=== PATIENT | male | born 1945 | race Caucasian/White ===

== ENCOUNTER 2017-02-22 09:39 | Emergency (ER) | payer MEDICARE ==
[2017-02-22] MEDS ORDERED: ONDANSETRON 4 MG/2 ML VIAL IVP STA (10:11)
--- NOTE | 2017-02-22 10:15 | ED ---
General Adult HPI - General Chief complaint: Dizziness Stated complaint: BLOOD PRESSURE HIGH Time Seen by Provider: 02/22/17 09:45 Source: patient, RN notes reviewed Mode of arrival: wheelchair Limitations: no limitations - History of Present Illness Initial comments: This is a 71-year-old male who presents emergency Department with the only complaint of nausea and vomited once last evening. Patient states this occurred ever since he was sedated for an MRI on . Patient denies any headache patient denies any lightheadedness. Patient denies any numbness weakness. Patient denies chest pain palpitations difficulty breathing or shortness of breath per patient denies any fever chills. Patient denies any diarrhea. When asked the patient wasn't dizzy even though he told nursing he was dizzy he denied dizziness to me. I asked the patient he wanted anything for his nausea he said he did not. Patient thought he might be nauseous this morning because he didn't eat breakfast. Patient states that his blood pressure with a friend's cough and it was elevated at home so he decided come to the emergency department - Related Data Home Medications Medication Instructions Recorded Confirmed No Known Home Medications [No 04/23/16 02/22/17 Known Home Medications] Allergies Allergy/AdvReac Type Severity Reaction Status Date / Time No Known Allergies Allergy Verified 02/22/17 11:33 Review of Systems ROS Statement: Those systems with pertinent positive or pertinent negative responses have been documented in the HPI. ROS Other: All systems not noted in ROS Statement are negative. Past Medical History Past Medical History: No Reported History Additional Past Medical History / Comment(s): neck pain History of Any Multi-Drug Resistant Organisms: None Reported Past Surgical History: Appendectomy, Back Surgery, Tonsillectomy Additional Past Surgical History / Comment(s): COLONOSCOPY Past Anesthesia/Blood Transfusion Reactions: No Reported Reaction Past Psychological History: No Psychological Hx Reported Smoking Status: Heavy tobacco smoker Past Alcohol Use History: Occasional Past Drug Use History: None Reported - Past Family History Mother Family Medical History: Cancer General Exam - General Exam Comments Initial Comments: GENERAL: Patient is well-developed and well-nourished. Patient is nontoxic and well- hydrated and is in no acute distress. ENT: Neck is soft and supple. No significant lymphadenopathy is noted. Oropharynx is clear. Moist mucous membranes. Neck has full range of motion without eliciting any pain. EYES: The sclera were anicteric and conjunctiva were pink and moist. Extraocular movements were intact and pupils were equal round and reactive to light. Eyelids were unremarkable. PULMONARY: Unlabored respirations. Good breath sounds bilaterally. No audible rales rhonchi or wheezing was noted. CARDIOVASCULAR: There is a regular rate and rhythm without any murmurs gallops or rubs. ABDOMEN: Soft and nontender with normal bowel sounds. No palpable organomegaly was noted. There is no palpable pulsatile mass. SKIN: Skin is clear with no lesions or rashes and otherwise unremarkable. NEUROLOGIC: Patient is alert and oriented x3. Cranial nerves II through XII are grossly intact. Motor and sensory are also intact. Normal speech, volume and content. Symmetrical smile. MUSCULOSKELETAL: Normal extremities with adequate strength and full range of motion. No lower extremity swelling or edema. No calf tenderness. LYMPHATICS: No significant lymphadenopathy is noted PSYCHIATRIC: Normal psychiatric evaluation. Limitations: no limitations Course Vital Signs 02/22/17 02/22/17 02/22/17 09:41 10:07 10:28 Temperature 97.0 F L Pulse Rate 64 56 L 55 L Respiratory 18 16 16 Rate Blood Pressure 181/95 156/95 163/88 O2 Sat by Pulse 98 100 98 Oximetry 02/22/17 02/22/17 10:54 12:18 Temperature 97.8 F Pulse Rate 54 L 58 L Respiratory 14 16 Rate Blood Pressure 140/92 141/89 O2 Sat by Pulse 99 100 Oximetry Medical Decision Making - Medical Decision Making EKG shows normal sinus rhythm at 60 bpm OK interval is 168 QRSs 100 QT interval 442 QTC is 442. Patient's EKG shows no ST segment elevation or depression or T wave abnormalities are noted Patient states he has no nausea at this time and feels like he can go home. - Lab Data Result diagrams: 02/22/17 09:50 02/22/17 09:50 Lab Results 02/22/17 02/22/17 02/22/17 Range/Units 09:50 09:50 09:50 WBC 8.0 (3.8-10.6) k/uL RBC 4.86 (4.30-5.90) m/uL Hgb 15.8 (13.0-17.5) gm/dL Hct 46.7 (39.0-53.0) % MCV 96.1 (80.0-100.0) fL MCH 32.5 (25.0-35.0) pg MCHC 33.8 (31.0-37.0) g/dL RDW 13.7 (11.5-15.5) % Plt Count 189 (150-450) k/uL Neutrophils % 63 % Lymphocytes % 27 % Monocytes % 5 % Eosinophils % 2 % Basophils % 1 % Neutrophils # 5.0 (1.3-7.7) k/uL Lymphocytes # 2.2 (1.0-4.8) k/uL Monocytes # 0.4 (0-1.0) k/uL Eosinophils # 0.2 (0-0.7) k/uL Basophils # 0.1 (0-0.2) k/uL Sodium 139 (137-145) mmol/L Potassium 4.4 (3.5-5.1) mmol/L Chloride 104 (98-107) mmol/L Carbon Dioxide 26 (22-30) mmol/L Anion Gap 9 mmol/L BUN 12 (9-20) mg/dL Creatinine 0.95 (0.66-1.25) mg/dL Est GFR (MDRD) Af Amer >60 (>60 ml/min/1.73 sqM) Est GFR (MDRD) Non-Af >60 (>60 ml/min/1.73 sqM) Glucose 98 (74-99) mg/dL Calcium 9.3 (8.4-10.2) mg/dL Magnesium 2.2 (1.6-2.3) mg/dL Total Bilirubin 0.6 (0.2-1.3) mg/dL AST 19 (17-59) U/L ALT 30 (21-72) U/L Alkaline Phosphatase 71 (38-126) U/L Total Creatine Kinase 57 (55-170) U/L CK-MB (CK-2) 0.5 (0.0-2.4) ng/mL CK-MB (CK-2) Rel Index 0.9 Troponin I <0.012 (0.000-0.034) ng/mL Total Protein 7.5 (6.3-8.2) g/dL Albumin 4.1 (3.5-5.0) g/dL Disposition Clinical Impression: Nausea & vomiting, Hypertension Disposition: HOME SELF-CARE Condition: Good Instructions: Acute Nausea and Vomiting (ED), Hypertension (ED) Referrals: Barb Acosta MD [Primary Care Provider] - 1-2 days Time of Disposition: 12:33
[2017-02-22 10:39] LABS: Basophils # (A) 0.1 k/uL (0-0.2); Basophils % (A) 1 %; CH 32.1; CHCM 33.6; Eosinophils # (A) 0.2 k/uL (0-0.7); Eosinophils % (A) 2 %; HCT 46.7 % (39.0-53.0); HDW 2.72; HGB 15.8 gm/dL (13.0-17.5); Luc # (Auto) 0.18; Luc % (Auto) 2; Lymphocytes # (A) 2.2 k/uL (1.0-4.8); Lymphocytes % (A) 27 %; MCH 32.5 pg (25.0-35.0); MCHC 33.8 g/dL (31.0-37.0); MCV 96.1 fL (80.0-100.0); Mean Platelet Volume 7.3; Monocytes # (A) 0.4 k/uL (0-1.0); Monocytes % (A) 5 %; Neutrophils % (A) 63 %; RBC 4.86 m/uL (4.30-5.90); RDW 13.7 % (11.5-15.5); WBC (Perox) 7.97
[2017-02-22 11:03] LABS: ALT 30 U/L (21-72); AST 19 U/L (17-59); Alkaline Phosphatase 71 U/L (38-126); Anion Gap 9 mmol/L; Blood Urea Nitrogen 12 mg/dL (9-20); Calcium 9.3 mg/dL (8.4-10.2); Carbon Dioxide 26 mmol/L (22-30); Chloride 104 mmol/L (98-107); Glucose 98 mg/dL (74-99); Magnesium 2.2 mg/dL (1.6-2.3); Non-African American GFR(MDRD) >60 (>60 ml/min/1.73 sqM); Potassium 4.4 mmol/L (3.5-5.1); Sodium 139 mmol/L (137-145); Total Bilirubin 0.6 mg/dL (0.2-1.3); Total Protein 7.5 g/dL (6.3-8.2)
[2017-02-22 11:52] LABS: Creatine Kinase 57 U/L (55-170)
[2017-02-22 12:04] LABS: Creatine Kinase MB 0.5 ng/mL (0.0-2.4); Troponin I <0.012 ng/mL (0.000-0.034)
[2017-02-22 12:22] VITALS: BP 141/89; PULSE 58; RESP 16; TEMP 97.8
[2017-02-22] MEDS ORDERED: ONDANSETRON 4 MG ODT STARTER PACK 2 TAB BTL PO STA (12:33)
== END 2017-02-22 12:46 | disposition home or self-care (01) ==
LOC: EC 09:39
DX: I10 Essential (primary) hypertension (principal); R11.2 Nausea with vomiting, unspecified; R42 Dizziness and giddiness; F17.290 Nicotine dependence, other tobacco product, uncomplicated
CPT/HCPCS: 36415; 93005; 80053; 82550; 82553; 83735; 84484; 85025; 99284; 96374; J2405; S0119

== ENCOUNTER → 2020-01-04 | Outpatient (CLI) | payer MEDICARE ==
--- NOTE | 2020-01-04 14:11 | CTL ---
EXAMINATION TYPE: CT Low Dose Lung DATE OF EXAM ORDERED: 01/04/2020 HISTORY: Long-term tobacco use. Lung cancer screening CT DLP: [address] CTDI: 3.7 mGy Automated exposure control for dose reduction was used. SCREENING VISIT: Initial study COMPARISON: Chest x-ray April 02, 2012 TECHNIQUE: Low dose computed tomography scan was performed through the chest at 1 mm thick sections a nd reconstructed images in the coronal plane at [address] DIAGNOSTIC QUALITY: Satisfactory FINDINGS: LUNG NODULES: None. LUNGS: COPD: Severity: [id number] Fibrosis: Severity: Mild/moderate anterior reticulation and fibrosis bilateral upper lobes and mild l inear scarring in both bases. Lymph nodes: No greater than 1 cm Other findings: None BILATERAL PLEURAL SPACE: Effusion: None Calcification: None Thickening: None Pneumothorax: None HEART: Heart Size: Normal Coronary calcification: Moderate three-vessel Pericardial effusion: Trace OTHER FINDINGS: Upper abdomen: Nonspecific 1.6 cm hypodense lesion left hepatic lobe axial image 327 favored benign Bony thorax: Moderate multilevel spurring with slight scoliotic curvature. Supraclavicular region: None. Other: Small degree of bilateral subareolar gynecomastia. IMPRESSION: No suspicious nodules. FOLLOW UP CT CHEST RECOMMENDATION: Annual low-dose lung screening CT CT LUNG RAD: Lung-Rad 1 Negative
== END | disposition home or self-care (01) ==
LOC: RADCTMAIN 13:18
PROVIDERS: ATTEND Family Medicine
DX: Z12.2 Encounter for screening for malignant neoplasm of respiratory organs (principal); F17.210 Nicotine dependence, cigarettes, uncomplicated

== ENCOUNTER → 2020-01-19 | Outpatient (CLI) | payer MEDICARE ==
--- NOTE | 2020-01-19 14:08 | EST ---
EXERCISE STRESS AGE: 74 SEX: M HT: 72" WT: 238 lbs PROTOCOL: Juan STAGE: 2 DURATION OF EXERCISE: 4:19 HEART RATE REST: 63 BLOOD PRESSURE REST: 149/76 MAXIMUM HEART RATE ACHIEVED: 107 MAXIMUM BLOOD PRESSURE: 174/93 85% MPHR: 125 100% MPHR: 147 METS: 6.0 INDICATIONS: Heart disease CLINICAL INFORMATION: Baseline rhythm is a sinus mechanism, rate of 63, normal axis and intervals, minor nonspecific ST-T wave changes, baseline blood pressure 149/86 mmHg. Patient exercised on Juan protocol for 4 minutes, 19 seconds reaching peak rate of 107 beats per minute which is equal 73% maximum predicted heart rate. Peak blood pressure 174/93 mmHg. Test was terminated due to fatigue. There was no chest pain. Electrocardiograph monitoring revealed occasional PVCs. There was no evidence of diagnostic ischemic ST deviation. IMPRESSION: 1. Decreased exercise tolerance with occasional PVCs. 2. Nondiagnostic electrocardiograph stress testing secondary to the inability to achieve 85% maximum predicted heart rate. MMODL / IJN: [id number] /
== END | disposition home or self-care (01) ==
LOC: RADNMMAIN 08:31
PROVIDERS: ATTEND Family Medicine
DX: R94.39 Abnormal result of other cardiovascular function study (principal); I51.9 Heart disease, unspecified
CPT/HCPCS: 93017

== ENCOUNTER → 2021-04-25 | Outpatient (CLI) | payer MEDICARE ==
--- NOTE | 2021-04-25 08:34 | CT ---
EXAMINATION TYPE: CT iac wo con DATE OF EXAM: 04/25/2021 COMPARISON: None HISTORY: Mastoiditis CT DLP: 235mGycm Automated exposure control for dose reduction was used. FINDINGS: There is wall thickening of the right external auditory canal. Left external auditory canal is of normal appearance. Suspect wax debris within the right external auditory canal. There is thick ening of the right tympanic membrane. The left tympanic membrane has a normal appearance. Mastoid air cells show no evidence of abnormal opacification bilaterally. The middle ear ossicles are symmetric and unremarkable. There is no evidence of suspicious surrounding soft tissue density to suggest cho lesteatoma. The scutum is preserved bilaterally. The cochlea and the semicircular canals are symmet alfredo and unremarkable. Vestibular aqueduct and internal carotid canal appear unremarkable. Temporoma ndibular joints are maintained bilaterally. IMPRESSION: 1. There is thickening of the right tympanic membrane and the right external auditory canal with wax debris noted. There is no evidence for mastoiditis at this time.
== END | disposition home or self-care (01) ==
LOC: RADCTMAIN 07:57
PROVIDERS: ATTEND Otolaryngology
DX: H91.90 Unspecified hearing loss, unspecified ear (principal); H70.92 Unspecified mastoiditis, left ear
CPT/HCPCS: 70480

== ENCOUNTER 2021-08-01 07:12 | Day surgery (SDC) | payer MEDICARE ==
[2021-07-31 10:24] VITALS: BMI 31.8
[2021-08-01] MEDS ORDERED: LACTATED RINGERS 1,000 ML IV ONE ×2 (07:26)
[2021-08-01 07:42] VITALS: TEMP 96.8
[2021-08-01] MEDS ORDERED: LIDOCAINE 1% (10MG/ML) FOR IV START INTRADERMA PRN (07:50)
[2021-08-01] MEDS ORDERED: LACTATED RINGERS 1,000 ML IV SCH (07:50)
[2021-08-01] MEDS ORDERED: PROPOFOL 10 MG/ML 20 ML VIAL IV ONE (08:06)
[2021-08-01] MEDS ORDERED: LIDOCAINE 1% INJ 10MG/ML (20 ML MDV) ONE (08:06)
--- NOTE | 2021-08-01 08:12 | P.GSHP ---
History of Present Illness H&P Date: 08/01/21 CHIEF COMPLAINT: Colon screen HISTORY OF PRESENT ILLNESS: The patient is a 75-year-old male who presents for colon screen. Lower endoscopy was offered for further evaluation and management. PAST MEDICAL HISTORY: Please see list. PAST SURGICAL HISTORY: Please see list. MEDICATIONS: Please see list. ALLERGIES: Please see list. SOCIAL HISTORY: No illicit drug use FAMILY HISTORY: No reports of Crohn disease or ulcerative colitis. REVIEW OF ORGAN SYSTEMS: CONSTITUTIONAL: No reports of fevers or chills. PHYSICAL EXAM: VITAL SIGNS: Stable GENERAL: Well-developed pleasant in no acute distress. HEENT: No scleral icterus. Extraocular movements grossly intact. Moist buccal mucosa. NECK: Supple without lymphadenopathy. CHEST: Unlabored respirations. Equal bilateral excursions. CARDIOVASCULAR: Regular rate and rhythm. Distal 2+ pulses. ABDOMEN: Soft, nontender, nondistended. MUSCULOSKELETAL: No clubbing, cyanosis, or edema. ASSESSMENT: 1. Colon screen. PLAN: 1. Recommend proceeding with a lower endoscopy Past Medical History Past Medical History: No Reported History Additional Past Medical History / Comment(s): neck pain History of Any Multi-Drug Resistant Organisms: None Reported Past Surgical History: Appendectomy, Back Surgery, Hernia Repair, Tonsillectomy Additional Past Surgical History / Comment(s): COLONOSCOPY Past Anesthesia/Blood Transfusion Reactions: No Reported Reaction Smoking Status: Current every day smoker - Past Family History Mother Family Medical History: Cancer Medications and Allergies Home Medications Medication Instructions Recorded Confirmed Type No Known Home Medications 04/23/16 07/31/21 History Allergies Allergy/AdvReac Type Severity Reaction Status Date / Time No Known Allergies Allergy Verified 08/01/21 07:33 Surgical - Exam Vital Signs Temp Pulse Resp BP Pulse Ox 96.8 F L 75 18 140/79 100 08/01/21 07:36 08/01/21 07:36 08/01/21 07:36 08/01/21 07:36 08/01/21 07:36
--- NOTE | 2021-08-01 08:41 | P.PCN ---
Date of Procedure: 08/01/21 Description of Procedure: PREOPERATIVE DIAGNOSIS: Personal history of colon polyps Family history malignant colon polyps POSTOPERATIVE DIAGNOSIS: Tubular adenoma sigmoid colon 10 diverticulosis Sigmoid diverticulosis Internal hemorrhoids, grade 2 OPERATION: Colonoscopy to the ileocecal valve and appendiceal orifice, cecum Colonoscopy with hot snare polypectomy SURGEON: Latia Koenig MD. ANESTHESIA: MAC. INDICATIONS: The patient is an 75-year-old male who presents family history of malignant colon polyps and personal history of colon polyps. Last colonoscopy over 5 years. Benefits and risks were described and informed consent was obtained. DESCRIPTION OF PROCEDURE: The patient had undergone Sutab prep. The patient had been brought into the operating room and laid in the left lateral decubitus position. After adequate intravenous sedation, the rectum was examined with 2% lidocaine jelly. The prostate was unremarkable. No external hemorrhoids were encountered. The rectal tone was within normal limits. No lesions were palpated in the rectal vault. An Olympus colonoscope was advanced until the cecum, ileocecal valve and appendiceal orifice were clearly viewed. The prep was fair. Sigmoid diverticulosis was encountered including martin diverticulosis Colonic polyps were found and removed. No evidence of focal colitis was found. Retroflexion of the scope demonstrated grade 1 internal hemorrhoids without active bleeding or inflammation. The colon was desufflated. The patient had tolerated the procedure well. Withdrawal time was over 6 minutes. FINDINGS: Aronchick preparation quality scale 3 (1-5) Internal hemorrhoids, grade 1 No external hemorrhoids No arteriovenous malformations. Sigmoid diverticulosis Pandiverticulosis Removal of 2 polyps: - Snare polypectomy 15 cm from the anal verge, 5 mm tubulovillous adenoma polyp, sigmoid colon - Snare polypectomy 30 cm from the anal verge, 4 mm flat villous adenoma polyp, sigmoid colon No focal colitis. RECOMMENDATIONS: Repeat colonoscopy in 3 years, 2024 Plan - Discharge Summary Discharge Rx Participant: No New Discharge Prescriptions: No Action No Known Home Medications Discharge Medication List No Known Home Medications 04/23/16 [History] Follow up Appointment(s)/Referral(s): Latia Koenig MD [STAFF PHYSICIAN] - 08/21/21 Patient Instructions/Handouts: Colorectal Polyps (GEN), Diverticulosis Diet (GEN), Diverticulitis Diet (DC), Diverticulosis (DC) Activity/Diet/Wound Care/Special Instructions: Repeat colonoscopy in 3 years, 2024 Discharge Disposition: HOME SELF-CARE
[2021-08-01 08:55] VITALS: RESP 16
[2021-08-01 08:56] VITALS: BP 110/70; PULSE 62
== END 2021-08-01 09:28 | disposition home or self-care (01) ==
LOC: ORWHC2ENDO 07:12
PROVIDERS: ATTEND Surgery Plastic and Reconstructive Surgery
DX: Z12.11 Encounter for screening for malignant neoplasm of colon (principal); K63.5 Polyp of colon; Z86.010 Personal history of colon polyps; Z80.0 Family history of malignant neoplasm of digestive organs; K57.30 Diverticulosis of large intestine without perforation or abscess without bleeding; K64.1 Second degree hemorrhoids; M54.2 Cervicalgia; Z90.49 Acquired absence of other specified parts of digestive tract; F17.210 Nicotine dependence, cigarettes, uncomplicated; K21.9 Gastro-esophageal reflux disease without esophagitis
CPT/HCPCS: 88305; 45385; J2001; J2704

== ENCOUNTER → 2022-04-12 | Outpatient (CLI) | payer MEDICARE ==
--- NOTE | 2022-04-12 10:49 | XR ---
EXAMINATION TYPE: XR chest 2V DATE OF EXAM: 04/12/2022 COMPARISON: 04/02/2012 HISTORY: Shortness of breath TECHNIQUE: Frontal and lateral views of the chest are obtained. FINDINGS: Scattered senescent parenchymal changes noted. Hyperinflation compatible with COPD. No evidence for infiltrate. No evidence for atelectasis. Heart size is stable. Mediastinal structures are stable and grossly unremarkable. No evidence for hilar prominence. Degenerative changes dorsal spine. IMPRESSION: 1. No evidence for acute pulmonary disease.
== END | disposition home or self-care (01) ==
LOC: RADXRMAIN 10:31
PROVIDERS: ATTEND Nurse Practitioner Family
DX: R05.2 Subacute cough (principal); R06.2 Wheezing
CPT/HCPCS: 71046

== ENCOUNTER → 2023-03-12 | Outpatient (CLI) | payer MEDICARE ==
[2023-03-12 15:15] LABS: African American GFR (CKD) >90 (>60 ml/min/1.73 sqM); Blood Urea Nitrogen 15 mg/dL (9-20); Non-African American GFR(CKD) 86 (>60 ml/min/1.73 sqM)
--- NOTE | 2023-03-13 21:36 | CT ---
EXAMINATION TYPE: CT angio head neck DATE OF EXAM: 03/12/2023 HISTORY: cluster headache syndrome, neck pain COMPARISON: None CT DLP: 544.9 mGycm. Automated Exposure Control for Dose Reduction was Utilized. TECHNIQUE: CTA scan of the neck is performed with IV Contrast, patient injected with 65 mL of Isovue 370, axial images are obtained, coronal and sagittal reformatted images are reviewed. Three-D recons tructed images are created on an independent workstation and reviewed. Source images are reviewed. FINDINGS: Carotid/Vascular Structures: There is a common origin of the right subclavian and left common carotid artery. Atheromatous plaquing without significant flow limiting stenosis at the bilateral carotid b ifurcations. Common carotid arteries bifurcate into internal and external carotid arteries without significant joana w limiting stenosis. Vertebral arteries are codominant. Internal carotid arteries and vertebral arteries are patent to the skull base. Cervical of [place]: Vertebral basilar system appears normal. Posterior cerebral vasculature is unrema rkable. Internal carotid arteries bifurcate normally into A1 and M1 segments. A2 segments are normal. The anterior communicating artery is patent. The right posterior communicating artery is absent. The left posterior communicating artery is patent. IMPRESSION: 1. No flow-limiting stenosis bilateral carotid bifurcations. 2. Normal [place] of [place] NASCET criteria was used in interpretation of this exam?
== END | disposition home or self-care (01) ==
LOC: RADCTMAIN 14:04
PROVIDERS: ATTEND Orthopaedic Surgery
DX: G44.009 Cluster headache syndrome, unspecified, not intractable (principal)
CPT/HCPCS: 82565; 84520; 70496; 70498; 36415; Q9967

== ENCOUNTER → 2023-06-27 | Outpatient (CLI) | payer MEDICARE ==
--- NOTE | 2023-06-27 12:30 | CT ---
EXAMINATION TYPE: CT cervical spine wo con DATE OF EXAM: 06/27/2023 COMPARISON: None HISTORY: 77-year-old male M50.30 OTHER CERVICAL DISC DEGENERATION Other cervical disc degeneration TECHNIQUE: Contiguous axial scanning of the cervical spine without IV contrast. Coronal and sagittal reconstructions performed. CT DLP: 813 mGycm Automated exposure control for dose reduction was used. FINDINGS: Craniocervical junction abnormality, predental space widening, or prevertebral soft tissue swelling. Mild degenerative change C1 dens articulation. Patient status post C5-C6 ACDF. Bkiz-mg-dafaorut degenerative disc disease with narrowing and disc osteophyte complex formation throu ghout the remaining levels. Disc osteophyte complex is resulting in mild spinal canal stenoses such as a C3-C4, C4-C5. There is r esidual posterior osteophytic ridging at the fused level as well C5-C6 mildly narrowing the spinal ca nal. Borderline moderate spinal canal narrowing C3-C4. Multilevel hypertrophic facet and uncovertebral joint arthropathy is present. Alignment is maintained. At C3-C4, changes result in moderate to severe right neural foraminal stenosis and mild on the left. At C4-C5, changes result in mild right neural foraminal stenosis. At C5-C6, changes result in mild right neuroforaminal stenosis. At C6-C7, mild bilateral neural foraminal stenosis. At C7-T1, mild left neuroforaminal stenosis. IMPRESSION: 1. STATUS POST C5-C6 ACDF. THERE IS RESIDUAL POSTERIOR OSTEOPHYTIC RIDGING AT THIS FUSED LEVEL CONTRI BUTING TO MILD SPINAL CANAL STENOSIS. 2. ADDITIONAL MULTILEVEL SPONDYLOTIC CHANGE WITH LEVELS OF MILD SPINAL CANAL NARROWING THROUGHOUT SEC ONDARY TO DISC OSTEOPHYTE COMPLEXES. BORDERLINE MODERATE NARROWING OF THE SPINAL CANAL AT C3-C4. 3. HYPERTROPHIC FACET AND UNCOVERTEBRAL JOINT ARTHROPATHY. THERE IS VARIABLE MILD NEUROFORAMINAL STEN OSES OUTLINED ABOVE, MODERATE TO SEVERE ON THE RIGHT AT C3-C4.
== END | disposition home or self-care (01) ==
LOC: RADCTMAIN 11:35
PROVIDERS: ATTEND Orthopaedic Surgery
DX: M47.812 Spondylosis without myelopathy or radiculopathy, cervical region (principal); M50.30 Other cervical disc degeneration, unspecified cervical region; M99.71 Connective tissue and disc stenosis of intervertebral foramina of cervical region; M25.78 Osteophyte, vertebrae; Z98.1 Arthrodesis status
CPT/HCPCS: 72125

== ENCOUNTER → 2023-09-04 | Outpatient (CLI) | payer MEDICARE ==
[2023-09-04 15:31] LABS: HCT 43.4 % (39.6-50.0); HGB 14.5 g/dL (13.0-17.0); MCH 31.9 pg (27.0-32.0); MCHC 33.4 g/dL (32.0-37.0); MCV 95.4 FL (80.0-97.0); Mean Platelet Volume 10.5 FL (9.5-12.2); NRBC Per 100 WBC 0 X 10*3/uL (0.00-0.01); Platelet Count 189 X 10*3/uL (140-440); RBC 4.55 X 10*6/uL (4.40-5.60); RDW 13.8 % (11.5-14.5); WBC 7.01 X 10*3/uL (4.50-10.00)
[2023-09-04 15:58] LABS: INR 1.07 sec (0.93-1.11); Prothrombin Time 11.5 sec (9.9-11.9)
[2023-09-04 16:08] LABS: ALT 22 U/L (10-49); AST 23 U/L (14-35); Albumin 4.3 g/dL (3.8-4.9); Albumin/Globulin Ratio 1.59 Ratio (1.60-3.17); Alkaline Phosphatase 75 U/L (41-126); Blood Urea Nitrogen 13.2 mg/dL (9.0-27.0); Calcium 9.2 mg/dL (8.7-10.3); Carbon Dioxide 22.9 mmol/L (21.6-31.8); Chloride 105 mmol/L (96-109); Globulin 2.7 g/dL (1.6-3.3); Glucose 106 mg/dL (70-110); Potassium 4.2 mmol/L (3.5-5.5); Sodium 137 mmol/L (135-145); Total Bilirubin 0.6 mg/dL (0.3-1.2)
== END | disposition home or self-care (01) ==
LOC: LABWHC1 09:24
PROVIDERS: ATTEND Orthopaedic Surgery
DX: M50.20 Other cervical disc displacement, unspecified cervical region (principal); M54.12 Radiculopathy, cervical region; R94.31 Abnormal electrocardiogram [ECG] [EKG]
CPT/HCPCS: 36415; 80053; 82306; 85027; 85610; 93005

== ENCOUNTER → 2023-09-18 | Outpatient (CLI) | payer MEDICARE | END | disposition home or self-care (01) | LOC: LABPAT 10:04 | PROVIDERS: ATTEND Orthopaedic Surgery | DX: Z01.812 Encounter for preprocedural laboratory examination (principal); Z22.322 Carrier or suspected carrier of Methicillin resistant Staphylococcus aureus; M50.20 Other cervical disc displacement, unspecified cervical region; M54.12 Radiculopathy, cervical region | CPT/HCPCS: 36415; 86850; 86900; 86901; 87070 ==

== ENCOUNTER 2023-09-25 09:28 | Day surgery (SDC) | payer MEDICARE ==
--- NOTE | 2023-09-18 20:01 | P.HPOR ---
History of Present Illness H&P Date: 09/18/23 .D:Date: 09/18/23 : 09:36am .T:Title: *CHANDANA SILVA [facility] HISTORY AND PHYSICAL Age: 78 year Height: 6' Weight: 244 lbs BMI: 33.09 kg/m2 Occupation: Instructor Of Nursing VAS: 5 Spine Surgery Risk Review Mr. Almaguer is presenting for evaluation of neck and bilateral upper extremity pain, bilateral upper extremity numbness and tingling. It was my pleasure to have seen and examined Mr. Almaguer. In our visit today we have had a chance to go over subjective complaints, physic al examination findings and treatments including the natural course history without intervention and various interventional options. The patients imaging demonstrates: CT scancompleted at Outside facility from02/28/23 of Cervical Spine: - Re-reviewed with the patient today. -Spondylosis with stenosis severe, C3-4, C4-5 -HNP C3-4 causing moderate to severe stenosis -HNP C4-5 causing moderate to severe stenosis -Alignment stable, decreased CL -NO fracture -No lesions CT scancompleted at [facility] from03/12/23 of angiogram, head, and neck: - Re-reviewed with the patient today. See report. No blockages. XRay Cervical multiview (Lateral, Flexion, Extension, AP, Oblique) 6 views taken at [facility] on 01/22/23: - Re-reviewed with the patient today. Multilevel spondylitic and degenerative changes with preserved alignment. Hardware present at C5-C6 from previous surgical procedure, screws and plate are intact with no migration. Multilevel diminished disc height. Adjacent segment disease is noted at C4-C5 and C6-C7. Mild grade 1 retrolisthesis C2 onto C3. Bilateral foraminal stenosis at the level of C3-C4. No acute osseous abnormalities. On physical exam, Mr. Almaguer demonstrates: A continued ache-like, burning pain that radiates down into the bilateral upper extremities with a sharp, shooting quality. The patient states that his upper extremity pain is associated with numbness and tingling bilaterally. The patient states his symptoms are exacerbated by prolonged activity or with any quick movements of the neck. The patient reports experiencing severe sleep disturbances related to her ongoing pain and associated symptoms. I have explained to the patient that as their condition progresses it will cause further neurological deficits and eventual paralysis. Based on the patients imaging, physical exam, and the rapid progression and disabling nature of their symptoms, at this time I recommend surgery in the form of a: C3-5 ACDF. I discussed the risk and benefits of this procedure at length with Mr. Almaguer. The patient agreed to considered pursuing the procedure abovementioned. Prior to surgery, she should follow up with her PCP (Cardio, ID, IM etc) for clearance. Questions were invited and answered, and the patient wishes to proceed as outlined below. Currently, I am recommendin.C3-5 Anterior cervical discecomty and fusion 2.Review of surgical risks and benefits as well as an educational packet on the proposed surgical procedure. Risks: All surgical procedures come with inherent risks, including those related to positioning, anesthesia, intraoperative findings, and postoperative complications. It is important to understand that surgery does not come with any guarantee of a successful outcome as complications and adverse events are always possible. The patient was given a handout in office today discussing the surgical procedure and risks associated with the intervention, both of which were discussed with the patient. These risks include but are not limited to the following: * Experiencing same, different or even worse symptoms in back, neck, arms, or legs compared to before surgery. Requiring further surgery or other forms of treatment presently or at some time in the future at same or other levels of the intended spine surgery. On an extreme but fortunately relatively rare basis severe complication such as blindness, stroke, heart attack, temporary and/or permanent nerve injury, paralysis, coma, or may occur, sometimes without known explanation. Surgical complications may include but are not limited to risk of infection, fluid accumulation in the surgical dissection site, including a seroma or hematoma, that requires additional surgery, wound drainage, bleeding, new numbness or weakness, vision changes/loss, spinal fluid leakage, non-healing and/or infected incision, headaches, difficulty or inability to swallow, hoarseness, hemopneumothorax, pneumothorax, impotence, retrograde ejaculation, vaginal dryness; injury to nerves, spinal cord, blood vessels, lymphatics or other vital organs (i.e., bowel injury, injury to the great vessels); heterotopic bone formation; complications related to the hardware such as screws, rods, cages including misplaced hardware, device failure, instrumentation at the wrong spine level, hardware fracture/breakage, or hardware loosening; vertebral failure of the spinal column above or below the newly placed hardware; retained surgical instrumentations or devices and the need for further surgery. * Medical risks of the planned spine surgery include but are not limited to generalized Infections to the whole body or local areas outside of the surgical site (sepsis), heart attack, bleeding, anaphylaxis, meningitis, seizure, epilepsy, hearing loss, burn heck, laceration of the head or other areas of the body, bruising, hypersensitivity of the skin, bladder over distension; allergic reaction; shoulder injury related to positioning; fat, blood and air clots to other areas of the body like heart, lungs, brain; failure of internal organs such as lungs, kidneys, liver and excessive bleeding. If blood transfusions are necessary, note that transfusions may cause intolerance reactions such as anaphylaxis or other complex reactions. Despite best efforts, the results of spine surgery might not heal in terms of bone, soft tissues such as skin, fascia, ligaments, and joints. Additionally, in order to achieve best possible results, spine surgery may be carried out beyond the initially planned levels and involve decompression, fusion including insertion of hardware at levels other than the original intended area of surgical interest change some portions of the procedure in order to ensure the best possible outcomes. With spine surgery and spinal fusion, there are different off label uses of instrumentation (devices, implants and hardware) as well as biological substances (bone morphogenic proteins, demineralized bone matrix) as well as using extra bone from allograft sources (i.e. cadaver bone) or autograft (iliac crest bone, ribs, or the spine itself). The patient has been given information about these practices and their inherent risks and benefits. [facility] is an educational center that serves as a training facility for neurosurgical and orthopedic COMPOUND WORKER and Nursing students. Physician assistants are medically trained surgical providers who function in the outpatient, inpatient, and operating room setting under the direct supervision of the attending surgeon. [facility] has multiple operating rooms with single and overlapping rooms running daily. They currently function under the required guidelines as produced by the [facility] with regards to the overlapping rooms and will continue to comply with changes to this policy as they occur. The requirements include and are complied with as follows: (1) the critical portions of the overlapping rooms will not occur at the same time, (2) the attending physician will be physically present during the critical portions of the procedure and immediately available during the entire case, and (3) a back-up attending is designated should the primary attending not be immediately available. The patient has had a chance to review all the listed information, has been given print outs detailing this information, and has had all his/her questions answered to their satisfaction. It was my pleasure to have seen and examined Mr. Almaguer. In our visit today we have had a chance to go over my understanding of our patient's current condition, the natural course history without intervention and various interventional options. Questions were invited and answered, and the patient wishes to proceed as outlined above. I have seen and examined the patient for 25 minutes and we have spent more than 50% of the time in repeat and detailed counseling about the patient's condition, its natural course history with out and as much as can be predicted with surgery and re-review of various surgical treatment options. In conclusion, Mr. Almaguer requested we proceed with the above suggested surgery and are willing to accept risks and limitations of the suggested surgery as nature of the disease process and our best attempts at treatment for the condition. Thank you again for allowing us to be part of your patient's care. Please don't hesitate to contact me if you have any further questions. FOLLOW UP: Post Procedure PATIENT EDUCATION: Medications Reviewed: YES In our visit today Mr. Almaguer and I have had a chance to go over my understanding of the patient's current condition, the natural course history without intervention and various interventional options. Questions were invited and answered, and the patient wishes to proceed as outlined above. I will be sure to keep you updated after Mr. Almaguer returns here for further follow-up. Thank you again for your referral. Please do not hesitate to contact me if you have any further questions. Signed and authenticated by: Arnol Nunez [facility] [address] [address] This message is confidential, intended only for the named recipient(s) and may contain information that is privileged or exempt from disclosure under applicable law. If you are not the intended recipient(s), you are notified that the dissemination, distribution or copying of this information is strictly prohibited. If you received this message in error, please notify the sender then delete this message. Past Medical History Past Medical History: No Reported History Additional Past Medical History / Comment(s): neck pain History of Any Multi-Drug Resistant Organisms: None Reported Past Surgical History: Appendectomy, Back Surgery, Hernia Repair, Tonsillectomy Additional Past Surgical History / Comment(s): COLONOSCOPY Past Anesthesia/Blood Transfusion Reactions: No Reported Reaction Smoking Status: Current every day smoker - Past Family History Mother Family Medical History: Cancer Medications and Allergies Home Medications Medication Instructions Recorded Confirmed Type No Known Home Medications 04/23/16 07/31/21 History Allergies Allergy/AdvReac Type Severity Reaction Status Date / Time No Known Allergies Allergy Verified 08/01/21 07:33 Physical Examination Osteopathic Statement: *. No significant issues noted on an osteopathic structural exam other than those noted in the History and Physical/Consult.
[2023-09-23 11:50] VITALS: BMI 33.9
[~2023-09-25 09:28] MED LIST: MIDAZOLAM 2 MG/2 ML VIAL IV PRN; TRANEXAMIC 1,000 MG/100ML-NACL 1,000 MG in SALINE 1 100ML.BAG IVPB PRN
[2023-09-25] MEDS: LACTATED RINGERS 1,000 ML IV SCH (10:15)
[2023-09-25] MEDS: ACETAMINOPHEN TAB 500 MG TAB PO PRN (10:19)
[2023-09-25] MEDS: GABAPENTIN 300 MG CAP PO PRN (10:19)
[2023-09-25] MEDS: DEXAMETHASONE SOD PHOSPHATE 4 MG/ML 1 ML VIAL IVP ONE (10:25)
[2023-09-25] MEDS: ONDANSETRON 4 MG/2 ML VIAL IVP PRN (10:25)
[2023-09-25] MEDS ORDERED: GLYCOPYRROLATE 0.2 MG/ML 2 ML VIAL ONE (11:00)
[2023-09-25] MEDS ORDERED: TRANEXAMIC 1,000 MG/100ML-NACL PREMIX BAG ONE (11:00)
[2023-09-25] MEDS ORDERED: ePHEDrine 50 MG/ML 1 ML VIAL ONE (11:00)
[2023-09-25] MEDS ORDERED: ROCURONIUM 10 MG/ML (5 ML VIAL) IV ONE (11:00)
[2023-09-25] MEDS ORDERED: NEOSTIGMINE 1 MG/ML 10 ML VIAL ONE (11:00)
[2023-09-25] MEDS ORDERED: fentaNYL (PF) 50 MCG/ML 2 ML AMP ONE (11:00)
[2023-09-25] MEDS ORDERED: SUCCINYLCHOLINE CHLORIDE 200 MG/10 ML VIAL IV ONE (11:00)
[2023-09-25] MEDS ORDERED: PROPOFOL 10 MG/ML 20 ML VIAL IV ONE (11:00)
[2023-09-25] MEDS ORDERED: LIDOCAINE 1% INJ 10MG/ML (20 ML MDV) ONE (11:00)
[2023-09-25] MEDS ORDERED: KETAMINE HCL IN 0.9 % NACL 50 MG/5 ML SYRINGE ONE (11:00)
[2023-09-25] MEDS ORDERED: MIDAZOLAM 2 MG/2 ML VIAL ONE (11:00)
[2023-09-25] MEDS: GELATIN SPONGE,ABSORB (LARGE) 1 EACH SPONGE MISCELLANE ONE (12:18)
[2023-09-25] MEDS: THROMBIN (BOVINE) 5,000 UNIT VIAL TOPICAL ONE (12:18)
--- NOTE | 2023-09-25 13:59 | P.OP ---
Date of Procedure: 09/25/23 Preoperative Diagnosis: 1. 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 UE RADICULOPATHY 3. UE WEAKNESS 4. NECK PAIN Postoperative Diagnosis: 1. 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 UE RADICULOPATHY 3. UE WEAKNESS 4. NECK PAIN Procedure(s) Performed: 1. C3-4 ANTERIOR CERVICAL INTERBODY ARTHRODESIS 2. C4-5 ANTERIOR CERVICAL INTERBODY ARTHRODESIS 3. C3-5 ANTERIOR INSTRUMENTATION 4. C3-4 AND C4-5 INSERTION OF BIOMECHANICAL DEVICE x2 USE OF IONM USE OF IO MICROSCOPE Implants: -4 ESTRADA ANTERIOR INTERBODY DEVICE 9MM 7 DEG MED -16MM SCREW INTERFACE -AUTOGRAFT -MAGNATOS Anesthesia: GETA Surgeon: Arnol Vieira Wolf Hunter #1: Ashley Whelan (Ashley Whelan, OR RN Was present and assisted with all aspects of the case from positioning to dressing placement) Estimated Blood Loss (ml): 50 IV fluids (ml): 1,200 Urine output (ml): 250 Pathology: none sent Condition: stable Disposition: PACU Indications for Procedure: Mr. Almaguer is presenting for evaluation of neck and bilateral upper extremity pain, bilateral upper extremity numbness and tingling. It was my pleasure to have seen and examined Mr. Almaguer. In our visit today we have had a chance to go over subjective complaints, physical examination findings and treatments including the natural course history without intervention and various interventional options. The patients imaging demonstrates: CT scancompleted at Outside facility from02/28/23 of Cervical Spine: - Re-reviewed with the patient today. -Spondylosis with stenosis severe, C3-4, C4-5 -HNP C3-4 causing moderate to severe stenosis -HNP C4-5 causing moderate to severe stenosis -Alignment stable, decreased CL -NO fracture -No lesions CT scancompleted at [facility] from03/12/23 of angiogram, head, and neck: - Re-reviewed with the patient today. See report. No blockages. XRay Cervical multiview (Lateral, Flexion, Extension, AP, Oblique) 6 views taken at [facility] on 01/22/23: - Re-reviewed with the patient today. Multilevel spondylitic and degenerative changes with preserved alignment. Hardware present at C5-C6 from previous surgical procedure, screws and plate are intact with no migration. Multilevel diminished disc height. Adjacent segment disease is noted at C4-C5 and C6-C7. Mild grade 1 retrolisthesis C2 onto C3. Bilateral foraminal stenosis at the level of C3-C4. No acute osseous abnormalities. On physical exam, Mr. Almaguer demonstrates: A continued ache-like, burning pain that radiates down into the bilateral upper extremities with a sharp, shooting quality. The patient states that his upper extremity pain is associated with numbness and tingling bilaterally. The patient states his symptoms are exacerbated by prolonged activity or with any quick movements of the neck. The patient reports experiencing severe sleep disturbances related to her ongoing pain and associated symptoms. I have explained to the patient that as their condition progresses it will cause further neurological deficits and eventual paralysis. Based on the patients imaging, physical exam, and the rapid progression and disabling nature of their symptoms, at this time I recommend surgery in the form of a: C3-5 ACDF. I dis cussed the risk and benefits of this procedure at length with Mr. Almaguer. The patient agreed to considered pursuing the procedure abovementioned. Prior to surgery, she should follow up with her PCP (Cardio, ID, IM etc) for clearance. Questions were invited and answered, and the patient wishes to proceed as outlined below. Currently, I am recommendin.C3-5 Anterior cervical discecomty and fusion Description of Procedure: C3-5 ACDF (REVISION) The patient was seen and examined in the preoperative area. All preoperative protocols were followed. Informed consent was obtained, risks and benefits of the procedure were discussed at length. Risks including bleeding infection damage to the surrounding tissue and risk of reoperation were discussed with the patient. Risk of anesthesia up to and including was discussed with the patient. These are outlined in the risk review. They were willing to accept these risks and all the risks of surgery. The patient was given a weight-based dose of antibiotics in the form of 2 g Ancef. The patient was seen and evaluated by the anesthesia team who deemed them fit for surgery. The site was marked, the patient was willing to proceed with the procedure. The patient was transferred to the operative suite by the Department of anesthe chau. They were then drifted off to sleep by the department anesthesia and GETA was performed. The patient tolerated this well. Vines catheter was placed by nursing staff, a-traumatically. Once confirmation of lines and ventilation the patient was transferred to a Supine Real table very carefully. All bony prominences including wrists, elbows, axilla, chest, hips, and thighs, and feet were padded very well. Special attention was paid to the genitalia, and these were padded accordingly. SCDs were placed on bilateral lower extremities and were connected. Arms were well padded and placed at their side thumbs up. Once in position, again we confirmed good ventilation capabilities and that lines were running appropriately. The patients Cervical spine was then exposed. 1010s were placed outlining the incision site. Standard alcohol was used to clean the incision site and allowed to dry. C-arm was used to bio-donaldo the patient and confirm level for incision which was marked with a skin marker. Operative briefing was performed with all teams and everyone in agreement to proceed. The patient was then prepped and draped in a normal sterile fashion. Timeout was then performed, and all parties agreed with the procedure to be performed. Transverse skin incision was then made on the LEFT side of the patients neck 3 cm through his previous incision, and dissection taken down to the platysma which was split transversely. Sub platysma flap was made, and interval identified between SCM and medial structures. Omohyoid was visualized and protected. Blunt dissection taken down to the anterior cervical facia which was identified. Blunt prob was then placed and lateral image taken which confirmed levels for operation. Plate was visualized at the caudal level and was stable. FUsion at this level was stable as well. These levels were then marked with a bovi. Subperiosteal dissection of the longissimus muscles were then done over these levels identifying uncovertebral joints bilaterally. Retractor was then placed deep to these muscles and held in place with a bed arm. [place] pins were placed into C3 and C4 and gentle distraction taken out over the levels. Иван rongeur used to remove disc material. Operating microscope brought in for visualization. Complete discectomy performed at this level with curette, rongure and pituitary. High speed vineet used to remove osteophytes anteriorly and posteriorly until PLL was identified. 6-0 up curette then used to identify the canal and resect the PLL. 2-0 and 3-0 Kerrison used then to remove PLL and disc herniation and performed b/l foraminotomies. Once good decompression was accomplished, meticulous hemostasis was performed. Sizers were then placed under lateral fluoroscopy until the desired height and lo rdosis. Cage was then selected, packed with autograft and allograft and placed under lateral imaging. Once in good position it was tested and stable. Motors run before and after cage placement were stable. The wound was irrigated, and autograft placed lateral to the cage anteriorly for fusion. [place] pin was then removed from C3 and bone wax placed in its void. [place] pin was then replaced i nto C5 and gentle distraction taken out over C4-5 level. Иван rongeur was used to remove disc material. Complete discectomy performed at this level with curette, rongure and pituitary. High speed vineet used to remove osteophytes anteriorly and posteriorly until PLL was identified. 6-0 up curette then used to identify the canal and resect the PLL. 2-0 and 3-0 Kerrison used then to remove PLL and disc herniation and performed b/l foraminotomies. Once good decompression was accomplished, meticulous hemostasis was performed. Sizers were then placed under lateral fluoroscopy until the alejandrina ired height and lordosis. Cage was then selected, packed with autograft and allograft and placed under lateral imaging. Once in good position it was tested and stable. Motors run before and after cage placement were stable. The wound was irrigated, and autograft placed lateral to the cage anteriorly for fusion. [place] pins were then removed from C4 and C5 and bone wax placed in its void. Anterior instrumentation was then done from C3-5. Screws were then drilled and measured and selected and placed into C3 and then C4 followed by C5 and secured. Good purchase of all screws obtained and the locking mechanisms were set. Final AP and lateral images taken confirmed good placement of hardware and good reduction and confucianist of height. The wound was then irrigated copiously with NSS. Surgicel placed deep in the wound. Layered closure then performed with 3-0 Vicryl in the platysma and subQ tissue. 4-0 Strata fix in the subcuticular tissue. The wound was then cleaned, and dried and skin glue placed. Once glue dried an Opifoam was placed. The patient was then transferred back to their hospital bed a-traumatically. The drain continued to hold suction. They were placed in a soft collar. They were then awakened by the department of anesthesia having tolerated the procedure well without complications.
--- NOTE | 2023-09-25 14:01 | XR ---
EXAMINATION TYPE: XR cervical spine limited DATE OF EXAM: 09/25/2023 COMPARISON: NONE HISTORY: Intraoperative imaging TECHNIQUE: 4 views submitted FINDINGS: Intraoperative images demonstrate intraoperative changes. IMPRESSION: See above
--- NOTE | 2023-09-25 14:02 | FL ---
EXAMINATION TYPE: FL guidance operating room DATE OF EXAM: 09/25/2023 HISTORY: Fluoroscopy time Total dose area product (DAP) in uGy*m?, mGy*cm? (or similar): 0.5333 IMPRESSION: 1. Fluoroscopy time.
[2023-09-25] MEDS ORDERED: HYDROmorphone 1 MG/ML 1 ML SYRINGE IVP PRN (14:05)
[2023-09-25] MEDS ORDERED: MAGNESIUM HYDROXIDE 2,400 MG/30 ML CUP PO PRN (14:05)
[2023-09-25] MEDS ORDERED: HYDROcodone/APAP 10-325MG 1 EACH TAB PO PRN (14:05)
[2023-09-25] MEDS ORDERED: ONDANSETRON 4 MG/2 ML VIAL IVP PRN (14:05)
[2023-09-25] MEDS: HYDROmorphone 0.5 MG/0.5 ML SYRINGE IVP PRN (14:41)
[2023-09-25] MEDS: KETOROLAC 15 MG/ML 1 ML VIAL IVP SCH (18:13)
--- NOTE | 2023-09-25 18:18 | CT ---
EXAMINATION TYPE: CT cervical spine wo con DATE OF EXAM: 09/25/2023 COMPARISON: 06/27/2023 HISTORY: s/p Revision C3-C5 ACDF CT DLP: 526 mGycm Automated exposure control for dose reduction was used. TECHNIQUE: CT scan of the cervical spine is obtained without contrast, axial images are obtained, sa gittal and coronal reformatted images are also reviewed. FINDINGS The craniovertebral junction relationships and prevertebral soft tissues are normal. The cervical vertebral segments are normal in height and alignment and there is no fracture or sublux ation. There is anterior metallic fusion of C5-6 and intradisc fusion of C3-4 and C4-5. There appears to be near-anatomic alignment. There is no bony compromise of the cervical canal or of the cervical neural foramina There is moderate facet arthropathy at the C3-4 level on the right and mild to moderate facet arthrop athy at the C4-5 and C5-6 levels on the left the uncovertebral joints are intact. IMPRESSION: 1. Postsurgical changes of cervical fusion as described above. 2. No fracture or malalignment.
[2023-09-25] MEDS: ATORVASTATIN 40 MG TAB PO SCH (18:44)
[2023-09-25] MEDS: METOPROLOL SUCCINATE (ER) 25 MG TAB.ER.24H PO SCH (18:44)
[2023-09-26] MEDS: HYDROcodone/APAP 5-325MG 1 EACH TAB PO PRN (02:21)
[2023-09-26] MEDS: CYCLOBENZAPRINE 5 MG TAB PO PRN (05:43)
[2023-09-26] MEDS: VALSARTAN 40 MG TAB PO SCH (08:23)
[2023-09-26] MEDS: SENNOSIDES-DOCUSATE SODIUM 1 EACH TAB PO SCH (08:24)
--- NOTE | 2023-09-26 08:43 | P.PN ---
Subjective Progress Note Date: 09/26/23 Principal diagnosis: 1. 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 Bilateral upper extremity radiculopathy 3. Bilateral upper extremity weakness 4. Neck pain Patient seen and examined this morning. Patient is sitting at bedside eating breakfast. Patient does report mild difficulty with swallowing his food due to pain, patient states it is tolerable. He does state that his pain is managed on current regimen. Patient states he does notice improvement in his bilateral upper extremity strength and radiculopathy since the procedure. Patient is requesting for discharge today. Surgical incision to the anterior cervical spine, dressing has been changed and NE drain has been removed. Discharge instructions have been discussed. No acute concerns at this time. Objective - Vital Signs Vital signs: Vital Signs Temp 97.5 F L 09/26/23 02:15 Pulse 70 09/26/23 02:15 Resp 18 09/26/23 02:15 BP 107/53 09/26/23 02:15 Pulse Ox 98 09/26/23 02:15 FiO2 Intake & Output 09/25/23 09/26/23 09/26/23 18:59 06:59 18:59 Intake Total 1850 290 Output Total 270 10 Balance 1580 280 Weight 114.6 kg Intake: IV 1850 Intake, IV Titration 290 Amount Lactated Ringers 1,000 ml 240 @ 20 mls/hr IV .Q24H PERRI Rx#:[id number] ceFAZolin 2 gm In Sodium 50 Chloride 0.9% 50 ml @ 100 mls/hr IVPB Q8H PRERI Rx#: [id number] Output: Drainage 10 Anterior 10 Urine 220 Estimated Blood Loss 50 Other: Voiding Method Toilet # Voids 0 2 - Exam Physical Examination General: The patient is awake and alert, in no acute distress Skin: Skin is warm and dry with no obvious rashes or lesions. Surgical incision to the anterior cervical spine, edges are well-approximated with glue intact. NE drain has been removed and new surgical dressing applied. Eye: Pupils are equal, round and reactive to light, extra-ocular movements are intact; there is normal conjunctiva bilaterally. Neck: The neck is supple, there is no tenderness and ROM intact. Cardiovascular: There is a regular rate and rhythm. No murmur, rub or gallop is appreciated. Respiratory: Lungs are clear to auscultation, respirations are non-labored, breath sounds are equal. Gastrointestinal: Soft, non-distended, non-tender abdomen. Back: There is no tenderness to palpation in the midline, paralumbar, parathoracic or buttocks region. There is no obvious deformity . Musculoskeletal: ROM limited secondary to pain and stiffness from surgical procedure. Muscle strength in all major muscle groups of bilateral upper extremities 4/5, bilateral lower extremities 5/5. Neurological: CN 2-12 intact. There are no obvious motor or sensory deficits. Movement and coordination equal and intact. Sensory exam to light touch intact C5-T1 and intact from L2-S1. Reflexes 2/4 in bilateral upper and lower extremities. Negative Hoffmans, babinski, and clonus signs. Psychiatric: Cooperative, appropriate mood & affect, normal judgment. Assessment and Plan Assessment: Postop day 1: C3-C5 ACDF 1. 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 Bilateral upper extremity radiculopathy 3. Bilateral upper extremity weakness 4. Neck pain Plan: -Appreciate mainframe consultant and team management. -Activity: Ambulate QID, OOB all meals, up and about, limit lifting bending twisting to less than 5 lbs. Use walker or cane if needed for stability. -Daily PT/OT, increase ambulation strength and balance. -Hard cervical collar is to be worn at all times, may be removed for showers. -Pain control: Adequate at this time -Meds: reviewed -GI ppx: senna, Miralax -DVT PPX: OK to restart Heparin tonight -Hygiene: Shower today. Maintain dressing clean and dry. Meticulous cleaning after BMs away from the incision site -Encourage IS 10x/hr -Dispo: Anticipate discharge home later today, patient denies need for home care. *I reviewed and discussed this case with my attending Dr. Vieira, whom has reviewed this chart and films and is in agreement with assessment and plan of care as outlined above. I have personally seen and examined the patient, performed the documentation and the assessment and plan as written. Number of minutes spent on the visit: 20m.
[2023-09-26] MEDS: HYDROmorphone 0.5 MG/0.5 ML SYRINGE IVP PRN (08:55)
[2023-09-26 08:57] VITALS: BP 102/57; PULSE 64; RESP 17; TEMP 97.6
[2023-09-26 10:08] LABS: ALT 18 U/L (4-49); AST 25 U/L (17-59); African American GFR (CKD) >90 (>60 ml/min/1.73 sqM); Albumin 3.5 g/dL (3.5-5.0); Albumin/Globulin Ratio 1.3; Alkaline Phosphatase 63 U/L (38-126); Anion Gap 8 mmol/L; Blood Urea Nitrogen 15 mg/dL (9-20); Calcium 8.7 mg/dL (8.4-10.2); Carbon Dioxide 21 mmol/L (22-30); Chloride 104 mmol/L (98-107); Globulin 2.8 g/dL; Glucose 127 mg/dL (74-99); Non-African American GFR(CKD) 85 (>60 ml/min/1.73 sqM); Potassium 4.4 mmol/L (3.5-5.1); Sodium 133 mmol/L (137-145); Total Bilirubin 0.5 mg/dL (0.2-1.3); Total Protein 6.3 g/dL (6.3-8.2)
[2023-09-26 10:18] LABS: Basophils # (A) 0.01 X 10*3/uL (0.00-0.10); Basophils % (A) 0.1 %; Eosinophils # (A) 0.03 X 10*3/uL (0.04-0.35); Eosinophils % (A) 0.3 %; HCT 37.8 % (39.6-50.0); HGB 12.5 g/dL (13.0-17.0); Lymphocytes # (A) 1.43 X 10*3/uL (0.90-5.00); Lymphocytes % (A) 13.8 %; MCH 31.8 pg (27.0-32.0); MCHC 33.1 g/dL (32.0-37.0); MCV 96.2 FL (80.0-97.0); Mean Platelet Volume 10.5 FL (9.5-12.2); Monocytes # (A) 0.93 X 10*3/uL (0.20-1.00); NRBC Per 100 WBC 0 X 10*3/uL (0.00-0.01); Neutrophils # (A) 7.93 X 10*3/uL (1.80-7.70); Neutrophils % (A) 76.6 %; Platelet Count 157 X 10*3/uL (140-440); RBC 3.93 X 10*6/uL (4.40-5.60); RDW 13.2 % (11.5-14.5); WBC 10.35 X 10*3/uL (4.50-10.00)
--- NOTE | 2023-09-26 11:24 | P.CONS ---
History of Present Illness - Reason for Consult Consult date: 09/25/23 - History of Present Illness Darian Almaguer, he is a 78-year-old male admitted to [facility] by Dr. Vieira. patient has a history of neck and bilateral upper extremity pain with bilateral upper extremity numbness and tingling and it was recommended for patient to undergo C3 to C5 anterior cervical discectomy and fusion. Patient has an additional medical history ofhyperlipidemia, hypertension and nicotine dependence. At this time patient denies chest pain or shortness of breath. Patient denies nausea vomiting or diarrhea. Patient denies any urinary burning or frequency. Review of Systems please refer to HPI otherwise unremarkable Past Medical History Past Medical History: Hyperlipidemia, Hypertension Additional Past Medical History / Comment(s): Neck pain, "bad discs". History of Any Multi-Drug Resistant Organisms: None Reported Past Surgical History: Appendectomy, Back Surgery, Heart Catheterization With Stent, Hernia Repair, Tonsillectomy Additional Past Surgical History / Comment(s): Neck fusion 20 yrs ago, colonoscopy, stent X1. Past Anesthesia/Blood Transfusion Reactions: No Reported Reaction, Motion Sickness Additional Past Anesthesia/Blood Transfusion Reaction / Comm: Motion Sickness X1 on a train. Date of Last Stent Placement:: May 2022 Past Psychological History: No Psychological Hx Reported Smoking Status: Current every day smoker Past Alcohol Use History: Occasional Additional Past Alcohol Use History / Comment(s): SMOKER FOR 50+ YRS, 1-3 PPD,CURRENTLY 1/2 PPD. Past Drug Use History: None Reported - Past Family History Mother Family Medical History: Cancer Medications and Allergies Home Medications Medication Instructions Recorded Confirmed Type Aspirin [Adult Low Dose Aspirin EC] 81 mg PO DAILY 09/23/23 09/23/23 History Atorvastatin [Lipitor] 40 mg PO PC-SUPPER 09/23/23 09/25/23 History Metoprolol Succinate [Metoprolol 25 mg PO PC-SUPPER 09/23/23 09/25/23 History Succinate ER] Valsartan 40 mg PO DAILY 09/23/23 09/23/23 History Allergies Allergy/AdvReac Type Severity Reaction Status Date / Time No Known Allergies Allergy Verified 09/25/23 10:05 Physical Exam Vitals: Vital Signs Temp Pulse Resp BP Pulse Ox 09/25/23 16:10 65 17 130/79 95 09/25/23 15:34 67 16 137/81 97 09/25/23 15:19 64 16 153/88 96 09/25/23 15:04 64 16 157/98 99 09/25/23 14:49 69 16 153/78 100 09/25/23 14:34 72 16 137/79 100 09/25/23 14:20 97 F L 69 16 157/84 100 09/25/23 10:08 97.0 F L 65 16 155/88 98 Intake and Output 09/25/23 09/25/23 09/25/23 06:59 14:59 22:59 Intake Total 1650 200 Output Total 270 Balance 1380 200 Intake: IV 1650 200 Output: Urine 220 Estimated Blood Loss 50 Other: # Voids 0 Weight 114.6 kg 114.6 kg In general patient is alert and oriented x 3 in no distress HEENT head normocephalic and atraumatic Neck is supple no JVD no goiter no lymphadenopathy no carotid bruit Chest examination is clear to auscultation no crackles no wheezing Cardiac exam reveals regular heart sounds S1 and S2 no gallops no murmurs Abdomen is soft nontender no organomegaly with normal bowel sounds Extremity exam reveals no edema no cyanosis or clubbing Neurological examination reveals no gross focal deficits Results CBC & Chem 7: 09/26/23 07:19 09/26/23 07:19 Assessment and Plan Assessment: 1. status post C3 to C5 anterior cervical discectomy and fusion with Dr. Vieira on 09/24 2. History of hyperlipidemia 3. History of essential hypertension 4. Current every day smoker. Patient educated greater than 3 minutes on the importance of complete smoking cessation thank you for this consultation we'll continue to follow patient closely thr oughout started Time with Patient: Greater than 30 (Greater than 60% of the total time spent in counseling and coordination of care)
--- NOTE | 2023-09-26 11:25 | P.PN ---
Subjective Progress Note Date: 09/26/23 Darian Almaguer, he is a 78-year-old male admitted to [facility] by Dr. Vieira. patient has a history of neck and bilateral upper extremity pain with bilateral upper extremity numbness and tingling and it was recommended for patient to undergo C3 to C5 anterior cervical discectomy and fusion. Patient has an additional medical history ofhyperlipidemia, hypertension and nicotine dependence. At this time patient denies chest pain or shortness of breath. Patient denies nausea vomiting or diarrhea. Patient denies any urinary burning or frequency. on 09/26/2023 patient is alert and oriented 3. Patient is resting comfortably in bed. Patient denies any chest pain or shortness of breath. Patient denies any nausea vomiting or diarrhea. Patient denies any urinary burning or frequency. Current vital signs temp 97.6, heart rate 64, respiratory rate 17, blood pressure 102/57 with pulse ox 95% on room air. Objective - Vital Signs Vital signs: Vital Signs Temp 97.6 F 09/26/23 07:44 Pulse 64 09/26/23 07:44 Resp 17 09/26/23 07:44 BP 102/57 09/26/23 07:44 Pulse Ox 95 09/26/23 07:44 FiO2 Intake & Output 09/25/23 09/26/23 09/26/23 18:59 06:59 18:59 Intake Total 1850 290 Output Total 270 10 Balance 1580 280 Weight 114.6 kg Intake: IV 1850 Intake, IV Titration 290 Amount Lactated Ringers 1,000 ml 240 @ 20 mls/hr IV .Q24H PERRI Rx#:[id number] ceFAZolin 2 gm In Sodium 50 Chloride 0.9% 50 ml @ 100 mls/hr IVPB Q8H PERRI Rx#: [id number] Output: Drainage 10 Anterior 10 Urine 220 Estimated Blood Loss 50 Other: Voiding Method Toilet # Voids 0 2 - Exam In general patient is alert and oriented x 3 in no distress HEENT head normocephalic and atraumatic Neck is supple no JVD no goiter no lymphadenopathy no carotid bruit Chest examination is clear to auscultation no crackles no wheezing Cardiac exam reveals regular heart sounds S1 and S2 no gallops no murmurs Abdomen is soft nontender no organomegaly with normal bowel sounds Extremity exam reveals no edema no cyanosis or clubbing Neurological examination reveals no gross focal deficits - Labs CBC & Chem 7: 09/26/23 07:19 09/26/23 07:19 Labs: Abnormal Lab Results - Last 24 Hours (Table) 09/26/23 09/26/23 Range/Units 07:19 07:19 WBC 10.35 H (4.50-10.00) X 10*3/uL RBC 3.93 L (4.40-5.60) X 10*6/uL Hgb 12.5 L (13.0-17.0) g/dL Hct 37.8 L (39.6-50.0) % Neutrophils # 7.93 H (1.80-7.70) X 10*3/uL Eosinophils # 0.03 L (0.04-0.35) X 10*3/uL Sodium 133 L (137-145) mmol/L Carbon Dioxide 21 L (22-30) mmol/L Glucose 127 H (74-99) mg/dL Assessment and Plan Assessment: 1. status post C3 to C5 anterior cervical discectomy and fusion with Dr. Vieira on 09/24 2. History of hyperlipidemia 3. History of essential hypertension 4. Current every day smoker. Patient educated greater than 3 minutes on the importance of complete smoking cessation thank you for this consultation we'll continue to follow patient closely throughout started
[2023-09-27] MEDS ORDERED: NICOTINE 14MG/24HR PATCH TRANSDERM SCH (09:00)
== END 2023-09-26 15:32 | disposition home or self-care (01) ==
LOC: OR 09:28 → 4SSUR 14:10 → OR 09-26 15:32
PROVIDERS: ATTEND Orthopaedic Surgery
DX: M47.22 Other spondylosis with radiculopathy, cervical region (principal); M48.02 Spinal stenosis, cervical region; M43.12 Spondylolisthesis, cervical region; F17.200 Nicotine dependence, unspecified, uncomplicated; Z90.49 Acquired absence of other specified parts of digestive tract; Z90.89 Acquired absence of other organs; Z79.899 Other long term (current) drug therapy
CPT/HCPCS: 97161; 80053; 85025; 72040; 72125; 22551; 22552; 22853 ×2; 20937; C1713; J1100; J0690 ×2; J2405; J1885 ×2; J1170 ×2

== ENCOUNTER → 2023-10-02 | Outpatient (CLI) | payer MEDICARE ==
--- NOTE | 2023-10-03 08:06 | CT ---
EXAMINATION TYPE: CT cervical spine wo con DATE OF EXAM: 10/02/2023 COMPARISON: 09/25/2023 HISTORY: Dysphagia, anterior swelling post cervical fusion last week CT DLP: 717.5 mGycm Automated exposure control for dose reduction was used. TECHNIQUE: CT scan of the cervical spine is obtained without contrast, axial images are obtained, sa gittal and coronal reformatted images are also reviewed. FINDINGS: Craniovertebral junction relationships are normal. There is been interval increase in prevertebral so ft tissue swelling from C2-3 through C5-6. Swelling compromises the airway which remains minimally pa tent.. There are postsurgical changes of anterior metallic fusion at C5-6 and intradiscal fusion at C3-4 and C4-5. There is moderate degenerative disc disease at C6-7 where there is moderate disc space narrowing and spondylosis. There is no change in the moderate facet arthropathy and uncovertebral joint degeneration in the lowe r cervical spine. There is no significant bony compromise of the cervical canal. There is severe bony neural foraminal stenosis at C3-4 on the right.. IMPRESSION: 1. Interval development of marked prevertebral soft tissue swelling. The possibility of hematoma or a bscess should be considered. There are a few tiny air bubbles within the fluid/soft tissue density.. 2. No change in the cervical vertebral segments are alignment.
== END | disposition home or self-care (01) ==
LOC: RADCTMAIN 07:50
PROVIDERS: ATTEND Orthopaedic Surgery
DX: R13.10 Dysphagia, unspecified (principal)
CPT/HCPCS: 72125

== ENCOUNTER → 2023-10-07 | Outpatient (CLI) | payer MEDICARE ==
[2023-10-07 08:58] LABS: African American GFR (CKD) >90 (>60 ml/min/1.73 sqM); Blood Urea Nitrogen 27 mg/dL (9-20); Non-African American GFR(CKD) 84 (>60 ml/min/1.73 sqM)
--- NOTE | 2023-10-07 10:55 | CT ---
EXAMINATION TYPE: CT soft tissue neck w con DATE OF EXAM: 10/07/2023 COMPARISON: Cervical spine 10/02/2023 HISTORY: 78-year-old male R13.10, left side neck lump post cervical fusion on Sep 25 2023 pt c/o dys phagia TECHNIQUE: Contiguous axial scanning of the soft tissues of the neck performed with IV Contrast, tristin ent injected with 100 mL of Isovue 300. A/sagittal reconstructions performed. CT DLP: 875 mGycm Automated exposure control for dose reduction was used. FINDINGS: Patient is status post C3--C6 ACDF. Fluid remains in the prevertebral space asymmetric to the left spanning top to bottom from C3-C4 to t he C5 level, 4.4 cm craniocaudal (versus 5.4 cm, previously). The fluid collection continues to make its way left laterally, anterior to the carotid space and medial to the left sternocleidomastoid musc le spanning a total width of 6.4 cm (not significantly changed). But currently measuring 1.5 cm thick versus 2.2 cm, previously. Within the more superficial tissues deep to the platysma muscle, there is overlying palpable marker a nd the fluid collection spans 4.1 cm craniocaudal versus 4.9 cm, previously. There is faint thin rim enhancement. Mass effect partially effacing the hypopharyngeal airway fairly similar to prior. Moderate hypertrophy of the bilateral tonsils. Significant mass effect onto the cervical esophagus. Visualized upper lungs show no gross abnormality. The thyroid gland, submandibular glands, and parotid glands are satisfactory. IMPRESSION: 1. STATUS POST C3-C6 ACDF. REDEMONSTRATED PREVERTEBRAL FLUID COLLECTION CURRENTLY SLIGHTLY SMALLER (4 .4 X 6.4 X 1.5 CM NOW VERSUS 5.4 X 6.4 X 2.2 CM, PREVIOUSLY). THIS CONTINUES TO EXTEND OFF TO THE LEF T ANTERIOR TO THE CAROTID SPACE AND MEDIAL TO THE LEFT STERNOCLEIDOMASTOID MUSCLE. THERE IS AN OVERLY ING PALPABLE MARKER. 2. Persistent moderate to severe mass effect onto the hypopharyngeal airway with near complete efface ment of the airway at this level and significant mass effect onto the cervical esophagus as well. 3. Incidental: Moderate bilateral lingual tonsillar hypertrophy.
== END | disposition home or self-care (01) ==
LOC: RADCTMAIN 08:06
PROVIDERS: ATTEND Orthopaedic Surgery
DX: J35.1 Hypertrophy of tonsils (principal); R22.1 Localized swelling, mass and lump, neck; R13.10 Dysphagia, unspecified
CPT/HCPCS: 82565; 84520; 70491; 36415; Q9967

== ENCOUNTER 2024-07-21 07:17 | Day surgery (SDC) | payer MEDICARE ==
[2024-06-17 11:04] VITALS: BMI 32.8
[~2024-07-21 07:17] MED LIST changes: +LACTATED RINGERS 1,000 ML IV SCH; +LIDOCAINE 1% (10MG/ML) FOR IV START INTRADERMA PRN; -TRANEXAMIC 1,000 MG/100ML-NACL 1,000 MG in SALINE 1 100ML.BAG IVPB PRN
--- NOTE | 2024-07-21 07:34 | P.GSHP ---
History of Present Illness H&P Date: 07/21/24 CHIEF COMPLAINT: GERD and colon screen HISTORY OF PRESENT ILLNESS: The patient is a 78-year-old male who presents with gastroesophageal reflux disease and need for colon screen. Upper and lower endoscopy were offered for further evaluation and management. PAST MEDICAL HISTORY: Please see list. PAST SURGICAL HISTORY: Please see list. MEDICATIONS: Please see list. ALLERGIES: Please see list. SOCIAL HISTORY: No illicit drug use FAMILY HISTORY: No reports of Crohn disease or ulcerative colitis. REVIEW OF ORGAN SYSTEMS: CONSTITUTIONAL: No reports of fevers or chills. GI: Denies any blood in stools or constipation. PHYSICAL EXAM: VITAL SIGNS: Stable GENERAL: Well-developed pleasant in no acute distress. HEENT: No scleral icterus. Extraocular movements grossly intact. Moist buccal mucosa. NECK: Supple without lymphadenopathy. CHEST: Unlabored respirations. Equal bilateral excursions. CARDIOVASCULAR: Regular rate and rhythm. Distal 2+ pulses. ABDOMEN: Soft, nondistended. MUSCULOSKELETAL: No clubbing, cyanosis, or edema. ASSESSMENT: 1. Gastroesophageal reflux disease 2. Colon screen. PLAN: 1. Recommend proceeding with an upper and lower endoscopy Past Medical History Past Medical History: Coronary Artery Disease (CAD), Hyperlipidemia, Hypertension Additional Past Medical History / Comment(s): issues with constipation, diverticulitis History of Any Multi-Drug Resistant Organisms: None Reported Past Surgical History: Appendectomy, Back Surgery, Heart Catheterization With Stent, Hernia Repair, Tonsillectomy Additional Past Surgical History / Comment(s): past colonoscopies, cervical/neck fusion surgery September 2023 Past Anesthesia/Blood Transfusion Reactions: No Reported Reaction Additional Past Anesthesia/Blood Transfusion Reaction / Comment(s): No history of blood transfusion. Date of Last Stent Placement:: May 2022 Smoking Status: Current every day smoker - Past Family History Mother Family Medical History: Cancer Additional Family Medical History / Comment(s): Mother passed from colon cancer Medications and Allergies Home Medications Medication Instructions Recorded Confirmed Type Aspirin [Adult Low Dose Aspirin EC] 81 mg PO DAILY 09/23/23 07/20/24 History Atorvastatin [Lipitor] 40 mg PO PC-SUPPER 09/23/23 07/20/24 History Metoprolol Succinate [Metoprolol 25 mg PO PC-SUPPER 09/23/23 07/20/24 History Succinate ER] Valsartan 40 mg PO QAM 09/23/23 07/20/24 History Cyclobenzaprine [Flexeril] 5 mg PO BID PRN #30 tablet 09/26/23 07/20/24 Rx Allergies Allergy/AdvReac Type Severity Reaction Status Date / Time No Known Allergies Allergy Verified 07/20/24 11:58
[2024-07-21] MEDS: IV FLUID CONTINUATION 1,000 ML IV ONE (07:36)
[2024-07-21 07:44] VITALS: TEMP 97.3
[2024-07-21] MEDS ORDERED: PROPOFOL 10 MG/ML 20 ML VIAL IV ONE (07:56)
[2024-07-21] MEDS ORDERED: LIDOCAINE 1% INJ 10MG/ML (20 ML MDV) ONE (07:56)
[2024-07-21 08:51] VITALS: BP 129/71; PULSE 69; RESP 16
--- NOTE | 2024-07-21 09:04 | P.PCN ---
Date of Procedure: 07/21/24 Description of Procedure: PREOPERATIVE DIAGNOSIS: Dysphagia Obesity excess calories, BMI 31.5 POSTOPERATIVE DIAGNOSIS: Gastroesophageal reflux disease with erosive esophagitis Gastritis, chronic with bleeding Diaphragmatic hiatal hernia, sliding Presbyesophagus Acute gastric ulcer with bleeding OPERATION: Esophagogastroduodenoscopy with cold forceps biopsies along esophagus, antrum and duodenum SURGEON: Latia Koenig MD ANESTHESIA: MAC. INDICATIONS: The patient is a 78-year-old male who presents with dysphagia. Benefits and risks of the procedure were described. Informed consent was obtained. DESCRIPTION: The patient was brought into the endoscopy suite and laid in the left lateral decubitus position. An Olympus gastroscope was passed along the posterior oropharynx down to the distal esophagus where the squamocolumnar junction was encountered at 46 cm from the incisors. The stomach was entered and no bile reflux was found. Additional findings are listed below. Biopsies with cold forceps were obtained of the antrum. The first through third portion of the duodenum was examined. Retroflexion of the scope confirmed Hill grade 2 lower esophageal valve. The squamocolumnar junction demonstrated LA grade B erosive esophagitis. The stomach was desufflated. The patient tolerated the procedure well. FINDINGS: Squamocolumnar junction 46 cm from the incisors. Diaphragmatic hiatus at 48 cm. Hiatal hernia, 2 cm Hill grade 2 lower esophageal valve. LA grade B erosive esophagitis. Biopsies obtained Biopsies obtained of the duodenum. Chronic gastritis with bleeding with biopsies obtained. Acute gastric ulcer, 3 mm, antrum, biopsies obtained RECOMMENDATIONS: Omeprazole 40 mg daily for 2 weeks Rigid dilation deferred due to acute gastritis and bleeding Repeat upper endoscopy 4 to 6 weeks
--- NOTE | 2024-07-21 09:07 | P.PCN ---
Date of Procedure: 07/21/24 Description of Procedure: PREOPERATIVE DIAGNOSIS: Family history malignant colon polyps Change in bowel habits Diverticulosis Colonoscopy screening POSTOPERATIVE DIAGNOSIS: Tubular adenoma transverse colon Sigmoid diverticulosis, severe OPERATION: Colonoscopy to the ileocecal valve Colonoscopy with hot snare polypectomy SURGEON: Latia Koenig MD. ANESTHESIA: MAC. INDICATIONS: The patient is an 78-year-old male who presents with change in bowel habits, constipation and diverticulosis. Last colonoscopy over 5 years ago. Benefits and risks were described and informed consent was obtained. DESCRIPTION OF PROCEDURE: The patient had undergone GoLytely prep. The patient had been brought into the operating room and laid in the left lateral decubitus position. After adequate intravenous sedation, the rectum was examined with 2% lidocaine jelly. The prostate fossa was unremarkable. No external hemorrhoids were encountered. The rectal tone was within normal limits. No lesions were palpated in the rectal vault. An Olympus colonoscope was advanced until the cecum were clearly viewed. The prep was good. Severe redundant sigmoid diverticulosis was encountered. Colonic polyps were found and removed. No evidence of focal colitis was found. Retroflexion of the scope demonstrated grade 2 internal hemorrhoids without active bleeding or inflammation. The colon was desufflated. The patient had tolerated the procedure well. Withdrawal time was over 6 minutes. FINDINGS: Aronchick preparation quality scale 2 (1-5) Internal hemorrhoids, grade 2 No external hemorrhoids No arteriovenous malformations. Sigmoid diverticulosis, severe, redundant Removal of 1 polyps: - Snare polypectomy mid transverse colon, 5 mm tubulovillous adenoma No focal colitis. RECOMMENDATIONS: Patient has symptomatic diverticulosis may benefit from colectomy Repeat colonoscopy 3 years, 2027 Plan - Discharge Summary Discharge Rx Participant: No New Discharge Prescriptions: New Omeprazole [PriLOSEC] 40 mg PO DAILY #14 cap Continue Atorvastatin [Lipitor] 40 mg PO PC-SUPPER Metoprolol Succinate [Metoprolol Succinate ER] 25 mg PO PC-SUPPER Aspirin [Adult Low Dose Aspirin EC] 81 mg PO DAILY Valsartan 40 mg PO QAM Cyclobenzaprine [Flexeril] 5 mg PO BID PRN #30 tablet PRN Reason: Muscle Spasm Discharge Medication List Aspirin [Adult Low Dose Aspirin EC] 81 mg PO DAILY 09/23/23 [History] Atorvastatin [Lipitor] 40 mg PO PC-SUPPER 09/23/23 [History] Metoprolol Succinate [Metoprolol Succinate ER] 25 mg PO PC-SUPPER 09/23/23 [History] Valsartan 40 mg PO QAM 09/23/23 [History] Cyclobenzaprine [Flexeril] 5 mg PO BID PRN #30 tablet 09/26/23 [Rx] Omeprazole [PriLOSEC] 40 mg PO DAILY #14 cap 07/21/24 [Rx] Follow up Appointment(s)/Referral(s): Latia Koenig MD [STAFF PHYSICIAN] - 08/03/24 9:30 am Patient Instructions/Handouts: *Surgery [facility] - (Anesthesia) Discharge Instructions Outpatient Surgery, Peptic Ulcer (DC), Colorectal Polyps (GEN), Diverticulosis Diet (GEN) Activity/Diet/Wound Care/Special Instructions: Repeat colonoscopy 3 years, 2027 Discharge Disposition: HOME SELF-CARE
== END 2024-07-21 09:20 | disposition home or self-care (01) ==
LOC: ORWHC2ENDO 07:17
PROVIDERS: ATTEND Surgery Plastic and Reconstructive Surgery
DX: Z12.11 Encounter for screening for malignant neoplasm of colon (principal); D12.3 Benign neoplasm of transverse colon; K57.30 Diverticulosis of large intestine without perforation or abscess without bleeding; K64.1 Second degree hemorrhoids; K21.00 Gastro-esophageal reflux disease with esophagitis, without bleeding; K22.10 Ulcer of esophagus without bleeding; K29.51 Unspecified chronic gastritis with bleeding; K44.9 Diaphragmatic hernia without obstruction or gangrene; K22.89 Other specified disease of esophagus; K25.0 Acute gastric ulcer with hemorrhage; K59.00 Constipation, unspecified; Z80.0 Family history of malignant neoplasm of digestive organs; I10 Essential (primary) hypertension; E78.5 Hyperlipidemia, unspecified; I25.10 Atherosclerotic heart disease of native coronary artery without angina pectoris; F17.210 Nicotine dependence, cigarettes, uncomplicated; Z87.19 Personal history of other diseases of the digestive system; E66.9 Obesity, unspecified; Z68.31 Body mass index [BMI] 31.0-31.9, adult; Z90.89 Acquired absence of other organs; Z90.49 Acquired absence of other specified parts of digestive tract; Z98.890 Other specified postprocedural states; Z95.5 Presence of coronary angioplasty implant and graft; Z79.82 Long term (current) use of aspirin; Z79.899 Other long term (current) drug therapy
CPT/HCPCS: 45385; 43239; J2003; J2704; 88305